=== PATIENT | female | born 1960 | race Two or more races ===

== ENCOUNTER 2020-06-29 15:56 | Emergency (ER) | payer BC ==
--- NOTE | 2020-06-29 16:46 | ER Document Report ---
ED Medical Screen (RME) - General Chief Complaint: Chest Pain Stated Complaint: CHEST PAIN,NAUSEA,VOMITING Time Seen by Provider: 06/29/20 16:43 Primary Care Provider: HANANE WARE PA-C [Primary Care Provider] - Follow up as needed Mode of Arrival: Wheelchair Information source: Patient, Relative Notes: Patient is a 59-year-old female comes emergency room accompanied by family with complaint of right upper quadrant pain radiating to the back. She also states anterior chest pain and she is also short of breath. Patient states that she has a history of 4 cardiac stents in the past. This pain started in the middle of the night last night and has been colicky and spasmatic jules. Patient states the spasms have gone more intense and more frequent in the last few hours. She denies any diarrhea but has had vomiting x1 with a green bile type presentation. She denies any history of diabetes. Patient does not smoke drink or do drugs. Stated she does state she has been short of breath with this as well. Patient examination: Patient is a well-nourished well-developed 59-year-old female though in no apparent distress is very uncomfortable appearing. Cardiac: Cardiac shows a regular rate and rhythm without any murmurs. Lungs: Bilateral breath sounds decreased throughout no rhonchi rales or wheeze are noted however patient was noted to be 93% on room air on her pulse ox. Abdomen: Examination of patient's abdomen shows severe tenderness right upper quad area positive Homans most likely. Chest: Palpation patient anterior chest does not show any reproducible tenderness. Patient was placed on oxygen out in triage secondary to her saturation 93%. Denies any known contact with COVID-19. I have greeted and performed a rapid initial assessment of this patient. A comprehensive ED assessment and evaluation of the patient, analysis of test results and completion of the medical decision making process will be conducted by additional ED providers. Dictation of this chart was performed using voice recognition software; therefore, there may be some unintended grammatical errors. TRAVEL OUTSIDE OF THE [place] IN LAST 30 DAYS: No - Related Data Allergies/Adverse Reactions: No Known Allergies Allergy (Verified 10/12/15 15:10) Physical Exam - Vital signs Vitals: Temp Pulse Resp BP Pulse Ox 97.8 F 103 H 19 153/96 H 93 06/29/20 16:13 06/29/20 16:13 06/29/20 16:13 06/29/20 16:13 06/29/20 16:13 Course - Vital Signs Vital signs: Temp Pulse Resp BP Pulse Ox 97.8 F 103 H 19 153/96 H 93 06/29/20 16:13 06/29/20 16:13 06/29/20 16:13 06/29/20 16:13 06/29/20 16:13 Doctor's Discharge - Discharge Referrals: HANANE WARE PA-C [Primary Care Provider] - Follow up as needed
--- NOTE | 2020-06-29 17:32 | EKG REPORT ---
SEVERITY:- BORDERLINE ECG - SINUS RHYTHM PROBABLE LEFT ATRIAL ABNORMALITY LEFT AXIS DEVIATION : Confirmed by: Shawn Dumont MD 29-Jun-2020 17:31:38
[2020-06-29 17:42] LABS: ABSOLUTE LYMPHOCYTES (AUTO) 1.2 10^3/uL (0.5-4.7); ABSOLUTE MONOCYTES (AUTO) 0.8 10^3/uL (0.1-1.4); ABSOLUTE NEUT (AUTO) 7.6 10^3/uL (1.7-8.2); BASOPHILS % (AUTO) 0.5 % (0-2); EOSINOPHILS % (AUTO) 9.2 % (0-6); HEMATOCRIT 39.5 % (36.0-47.0); HEMOGLOBIN 13.4 g/dL (12.0-15.5); LYMPHOCYTES % (AUTO) 11.4 % (13-45); MEAN CORPUSCULAR HEMOGLOBIN 28.7 pg (27.0-33.4); MEAN CORPUSCULAR HGB CONC 33.8 g/dL (32.0-36.0); MEAN CORPUSCULAR VOLUME 85 fl (80-97); MONOCYTES % (AUTO) 7.4 % (3-13); PLATELET COUNT 152 10^3/uL (150-450); RED BLOOD COUNT 4.66 10^6/uL (3.72-5.28); RED CELL DISTRIBUTION WIDTH 12.9 % (11.5-14.0); SEGMENTED NEUTROPHILS % (AUTO) 71.5 % (42-78); TOTAL CELLS COUNTED % (AUTO) 100 %; WHITE BLOOD COUNT 10.6 10^3/uL (4.0-10.5)
[2020-06-29 17:57] LABS: ALBUMIN 4.6 g/dL (3.5-5.0); ALKALINE PHOSPHATASE 63 U/L (38-126); ANION GAP 14 (5-19); ASPARTATE AMINO TRANSFERASE 24 U/L (14-36); BLOOD UREA NITROGEN 24 mg/dL (7-20); CALCIUM 10.3 mg/dL (8.4-10.2); CARBON DIOXIDE 31 mmol/L (22-30); CHLORIDE 94 mmol/L (98-107); GLUCOSE 212 mg/dL (75-110); POTASSIUM 3.9 mmol/L (3.6-5.0)
--- NOTE | 2020-06-29 18:07 | RADIOLOGY REPORT (SQ) ---
EXAM DESCRIPTION: U/S ABDOMEN LIMITED W/O DOP IMAGES COMPLETED DATE/TIME: 06/29/2020 5:48 pm REASON FOR STUDY: Right upper quad pain COMPARISON: None. TECHNIQUE: Dynamic and static grayscale images acquired of the abdomen and recorded on PACS. Additio nal selected color Doppler and spectral images recorded. LIMITATIONS: None. FINDINGS: PANCREAS: No masses. Visualized pancreatic duct normal caliber. LIVER: No masses. Echotexture normal. LIVER VASCULATURE: Normal directional flow of the main portal vein and hepatic veins. GALLBLADDER: Gallstone(s). No pericholecystic fluid. No wall thickening. ULTRASOUND-DETECTED BACON'S SIGN: Positive. INTRAHEPATIC DUCTS AND COMMON DUCT: CBD and intrahepatic ducts normal caliber. No filling defects. INFERIOR VENA CAVA: Normal flow. AORTA: No aneurysm. RIGHT KIDNEY: Normal size. Normal echogenicity. No solid or suspicious masses. Incidental note is m alejandra of a 2 cm cyst versus calyceal diverticulum. No hydronephrosis. No calcifications. PERITONEAL AND RIGHT PLEURAL SPACE: No ascites or effusions. OTHER: No other significant findings. IMPRESSION: Positive sonographic Bacon sign. Cholelithiasis without evidence of cholecystitis. TECHNICAL DOCUMENTATION: JOB ID: [id number] 2010 [employer]- All Rights Reserved Reading location - IP/workstation name: [email or web address]
[2020-06-29 20:12] LABS: APPEARANCE,URINE CLEAR; BILIRUBIN,URINE NEGATIVE (NEGATIVE); COLOR,URINE YELLOW; GLUCOSE, URINE NEGATIVE (NEGATIVE); KETONES,URINE NEGATIVE (NEGATIVE); LEUKOCYTE ESTERASE,URINE NEGATIVE (NEGATIVE); NITRITE,URINE NEGATIVE (NEGATIVE); PROTEIN,URINE NEGATIVE (NEGATIVE); URINE SPECIFIC GRAVITY 1.019; UROBILINOGEN,URINE NEGATIVE mg/dL (<2.0)
[2020-06-29] MEDS ORDERED: MORPHINE SULFATE 10 MG/ML INJ IV ONE (21:50)
[2020-06-29] MEDS ORDERED: NORMAL SALINE 500 ML IV ONE (21:50)
[2020-06-29] MEDS ORDERED: ONDANSETRON HCL INJ/PF 4 MG/2 ML SDV IV ONE (21:50)
--- NOTE | 2020-06-29 21:56 | ER Document Report ---
ED General - General Chief Complaint: Chest Pain Stated Complaint: CHEST PAIN,NAUSEA,VOMITING Time Seen by Provider: 06/29/20 16:43 Primary Care Provider: HANANE WARE PA-C [Primary Care Provider] - Follow up as needed Mode of Arrival: Wheelchair TRAVEL OUTSIDE OF THE [place] IN LAST 30 DAYS: No - HPI Notes: Patient is a 59-year-old female with a history of coronary artery disease who presents the emergency department for evaluation of right upper quadrant pain. Last night she had chickpeas for dinner. About a half an hour later she started having abdominal pain. Is in her right upper quadrant. Radiates around to her back, occasionally up into her chest. Is occasionally in her shoulder as well. She rates it a 10 out of 10. She has had nausea with one episode of bilious emesis. She is felt nauseated all day. No fevers or chills. She is never had pain like this in the past. Normal bowel movements. - Related Data Allergies/Adverse Reactions: No Known Allergies Allergy (Verified 10/12/15 15:10) Home Medications: List reviewed at bedside Past Medical History - General Information source: Patient, Relative - Social History Smoking Status: Never Smoker Family History: CAD, DM, Hypertension Patient has homicidal ideation: No - Past Medical History Cardiac Medical History: Reports: Hx Coronary Artery Disease, Hx Hypercholesterolemia, Hx Hypertension Neurological Medical History: Reports: Hx Cerebrovascular Accident Endocrine Medical History: Reports: Hx Diabetes Mellitus Type 2 Review of Systems - Review of Systems Constitutional: No symptoms reported EENT: No symptoms reported Cardiovascular: See HPI Respiratory: No symptoms reported Gastrointestinal: See HPI Genitourinary: No symptoms reported Musculoskeletal: See HPI Skin: No symptoms reported Neurological/Psychological: No symptoms reported -: Yes All other systems reviewed and negative Physical Exam - Vital signs Vitals: Temp Pulse Resp BP Pulse Ox 97.8 F 103 H 19 153/96 H 93 06/29/20 16:13 06/29/20 16:13 06/29/20 16:13 06/29/20 16:13 06/29/20 16:13 - Notes Notes: This is a 59-year-old female who appears her stated age, in a moderate amount of distress. Vital signs reviewed, please refer to chart. Head is normocephalic, atraumatic. Pupils equal round, reactive to light. Neck is supple without meningismus. Heart is regular rate and rhythm. Lungs are clear to auscultation bilaterally. Abdomen is soft, moderately tender in the epigastrium and right upper quadrant without rebound or guarding, normoactive bowel sounds throughout. Extremities without cyanosis, clubbing. Posterior calves are nontender. Periph eral pulses are equal. Skin is warm and dry. Patient is awake, alert, neurological exam is nonfocal. Course - Re-evaluation Re-evalutation: 06/29/20 22:24 Patient presents emergency department for evaluation. She was initially seen through triage. Laboratory investigations were obtained. Her labs are largely unremarkable. Patient's ultrasound reveals cholelithiasis without clear evidence of cholecystitis and a positive sonographic Bacon sign. I did briefly discuss this case with surgeon, Dr. Fitzgerald. He states that in the absence of any emergent need to remove this gallbladder at this time, she should be off of her Plavix for at least 5 days for surgery. He recommends referral on to the surgery clinic and having patient hold her Plavix. At this point I am giving her morphine and Zofran for symptoms, IV fluids. She is currently stable, we will reassess. 06/30/20 00:07 Patient feeling significantly improved after pain medication, nausea medication. No further vomiting. Her vital signs improved, including her hypertension. Again she shows cholelithiasis signs without clear signs of infection or choledocholithiasis. Patient was counseled on dietary changes. She was counseled on follow-up with surgery soon as possible to discuss cholecystectomy prior to it becoming an urgent or emergent procedure. She voiced understanding. I will send her home with pain medication, nausea medication, surgery referral. She is to return to the ED with worsening. - Vital Signs Vital signs: Temp Pulse Resp BP Pulse Ox 99.1 F 77 21 H 142/107 H 97 06/29/20 20:41 06/29/20 20:41 06/29/20 20:57 06/29/20 20:57 06/29/20 20:57 - Laboratory Result Diagrams: 06/29/20 17:10 06/29/20 17:10 Laboratory results interpreted by me: 06/29/20 06/29/20 17:10 17:10 WBC 10.6 H Lymph % (Auto) 11.4 L Eos % (Auto) 9.2 H Absolute Eos (auto) 1.0 H Chloride 94 L Carbon Dioxide 31 H BUN 24 H Glucose 212 H Calcium 10.3 H Total Bilirubin 2.0 H - Diagnostic Test Radiology reviewed: Reports reviewed Radiology results interpreted by me: 06/30/20 00:07 Abdomen Ultrasound 06/29/20 17:08 IMPRESSION: Positive sonographic Bacon sign. Cholelithiasis without evidence of cholecystitis. - EKG Interpretation by Me Additional EKG results interpreted by me: 06/29/20 22:25 Sinus mechanism with rate of 96 bpm. Left axis deviation. No acute ST changes concerning for ischemia or infarction. Discharge - Discharge Clinical Impression: Biliary colic, Cholelithiasis Condition: Stable Disposition: HOME, SELF-CARE Instructions: Gallbladder Disease ([facility]) Additional Instructions: You were seen for pain in your abdomen that is likely related to gallstones. Your work-up today does not show any signs that you need to have your gallbladder removed tonight. However, you will likely need surgery as an outpatient in the coming weeks. Please contact the surgery clinic in the next 24-48 hours to discuss the need for further evaluation and consideration of surgery. Return to the ED immediately if you develop worsening pain, persistent vomiting, become unable to tolerate fluids, have a fever of >100.4, or any other symptoms that are concerning to you. Referrals: HANANE WARE PA-C [Primary Care Provider] - Follow up as needed
[2020-06-30] MEDS ORDERED: ONDANSETRON ODT 4 MG TAB (6 TAB/ER DISP) PO PRN (00:08)
[2020-06-30] MEDS ORDERED: HYDROCODONE/ACETAMINOPHEN 5-325 MG (6 TAB/ER DISP) PO PRN (00:09)
[2020-06-30 00:26] VITALS: BP 123/73
== END 2020-06-30 00:46 | disposition home or self-care (01) ==
LOC: ER 15:56
DX: K80.70 Calculus of gallbladder and bile duct without cholecystitis without obstruction (principal); R10.11 Right upper quadrant pain; R10.816 Epigastric abdominal tenderness; R10.811 Right upper quadrant abdominal tenderness; M54.9 Dorsalgia, unspecified; R07.9 Chest pain, unspecified; M25.519 Pain in unspecified shoulder; R11.14 Bilious vomiting; I25.10 Atherosclerotic heart disease of native coronary artery without angina pectoris; I10 Essential (primary) hypertension; E11.9 Type 2 diabetes mellitus without complications
CPT/HCPCS: 93005; 99285; 96361; 96374; 96375; 36415; 87086; 83690; 85025; 80053; 81001; 84484; 76705; 93010; J2270; J2405; J7040

== ENCOUNTER 2020-08-27 07:55 | Day surgery (SDC) | payer BC ==
[2020-08-24 12:51] LABS: ABSOLUTE EOSINOPHILS # (AUTO) 0.2 10^3/uL (0.0-0.6); ABSOLUTE LYMPHOCYTES (AUTO) 1.8 10^3/uL (0.5-4.7); ABSOLUTE MONOCYTES (AUTO) 0.4 10^3/uL (0.1-1.4); ABSOLUTE NEUT (AUTO) 3.2 10^3/uL (1.7-8.2); BASOPHILS % (AUTO) 0.6 % (0-2); HEMATOCRIT 37.9 % (36.0-47.0); HEMOGLOBIN 12.9 g/dL (12.0-15.5); LYMPHOCYTES % (AUTO) 31.2 % (13-45); MEAN CORPUSCULAR HEMOGLOBIN 28.6 pg (27.0-33.4); MEAN CORPUSCULAR HGB CONC 34.2 g/dL (32.0-36.0); MEAN CORPUSCULAR VOLUME 84 fl (80-97); MONOCYTES % (AUTO) 7.7 % (3-13); PLATELET COUNT 130 10^3/uL (150-450); RED BLOOD COUNT 4.53 10^6/uL (3.72-5.28); SEGMENTED NEUTROPHILS % (AUTO) 56.5 % (42-78); TOTAL CELLS COUNTED % (AUTO) 100 %; WHITE BLOOD COUNT 5.6 10^3/uL (4.0-10.5)
[2020-08-24 13:13] LABS: POTASSIUM 3.7 mmol/L (3.6-5.0)
[~2020-08-27 07:55] MED LIST: CEFAZOLIN 2 GM/D5W RTU 2 GM/50 ML RTUPB IV ONE; CEFAZOLIN 2 GM/D5W RTU 2 GM/50 ML RTUPB IV PRN; FENTANYL CITRATE INJ/PF 100 MCG/2 ML AMPUL ONE; LACTATED RINGERS 1000 ML IV PRN; METRONIDAZOLE 500 MG/NS RTU 500 MG/100 ML RTUPB IV ONE; METRONIDAZOLE 500 MG/NS RTU 500 MG/100 ML RTUPB IV PRN; MIDAZOLAM 2 MG/2 ML INJ ONE; PROPOFOL INJ 200 MG/20 ML VIAL IV ONE
--- OUTSIDE RECORDS SUMMARY | 2020-08-27 07:58 | XMS REPORT ---
:1960 [facility] Address [address] [address] Care Team Providers Name Role Phone Unavailable Unavailable Unavailable Allergies, Adverse Reactions, Alerts This patient has no known allergies or adverse reactions. Medications This patient has no known medications. Problems This patient has no known problems. Procedures This patient has no known procedures. Results This patient has no known results. Social History This patient has no known social history. Vital Signs This patient has no known vital signs.
[2020-08-27] MEDS ORDERED: BUPIVACAINE INJ/PF LIPOSOME/PF 266 MG/20 ML SDV ONE (09:17)
[2020-08-27] MEDS ORDERED: MEPERIDINE HCL/PF INJ 25 MG/1 ML DISP.SYRIN IV PRN (09:36)
[2020-08-27] MEDS ORDERED: ONDANSETRON HCL INJ/PF 4 MG/2 ML SDV IV PRN (09:36)
[2020-08-27] MEDS ORDERED: DIPHENHYDRAMINE HCL 50 MG/ML VIAL IV PRN (09:36)
[2020-08-27] MEDS ORDERED: FENTANYL CITRATE INJ/PF 100 MCG/2 ML AMPUL IV PRN ×3 (09:36)
[2020-08-27] MEDS ORDERED: MORPHINE SULFATE 10 MG/ML INJ IV PRN (09:36)
--- NOTE | 2020-08-27 10:21 | Operative Report ---
Nonrecallable Operative Report DATE OF SURGERY: 08/27/20 PREOPERATIVE DIAGNOSIS: Symptomatic cholelithiasis POSTOPERATIVE DIAGNOSIS: Same OPERATION: Laparoscopic cholecystectomy SURGEON: AMINAH ZUNIGA FILENET P8 DEVELOPER: ADWOA SMITH ANESTHESIA: GA TISSUE REMOVED OR ALTERED: Gallbladder COMPLICATIONS: None INTRAOPERATIVE FINDINGS: see note PROCEDURE: After obtaining informed consent, the patient was taken to the operating room. General Anesthesia was induced; the arms were extended, and the abdomen was exposed, and prepped and draped in a sterile fashion. Instrumentation was set up for laparoscopic cholecystectomy. Surgical plan and surgical timeout were conducted. A vertical incision was made above the umbilicus, and a verres needle was inserted uneventfully into the peritoneal cavity. Pneumoperitoneum was established. The verres needle was removed and a 10 mm trocar was inserted and a 10 mm RAYMUNDO Fernandes was present for the entire procedure for help with wound retraction wound closure e laparoscope was inserted. Visualization of the peritoneal cavity confirmed safe uneventful entry. Under direct visualization 3 additional 5 mm ports were established, one in the subxiphoid position and second in the subcostal position. Visualization of the hepatobiliary anatomy revealed no anatomic variations. A grasper was placed on the fundus of the gallbladder and the gallbladder is elevated over the right surface of the liver; a second grasper was used to grasp the infundibulum of the gallbladder. The neck of the gallbladder and junction with the cystic duct was dissected out. The Cystic artery was in its usual location medial and cephalad to the cystic d uct. The cystic artery was surrounded with a right angle clamp, clipped twice proximally and divided with laparoscopic scissors. We now opened the triangle of Calot by dividing the peritoneal reflection on both the medial and lateral sides of the cystic duct infundibular junction. The critical view was obtained. We now milked the cystic duct of any possible stones, clipped the cystic duct approximately 2 times once distally and divided with scissors. The gallbladder was now removed from the undersurface of the liver using hook cautery dissection. Graspers were repositioned and the gallbladder was removed uneventfully from the abdominal cavity through the super umbilical port site incision. The specimen was examined, then passed off to pathology for permanent analysis. We returned to the peritoneal cavity check for bleeding, and evidence of bile leak, and there was none. We Confirmed satisfactory placement of clips on cystic duct and cystic artery were secured . At this point we felt the operation was complete. The subcutaneous tissue was then anesthetized with quarter percent Marcaine Sponge and needle counts are correct. All ports removed under direct visualization pneumoperitoneum evacuated, and 5 mm port wounds closed with 3-0 Vicryl suture, benzoin and Steri-Strips. The patient was extubated, and taken to the recovery room in stable condition. Adwoa Emerson was present for the entire procedure for help with wound retraction and wound closure
--- NOTE | 2020-08-27 10:26 | Discharge Summary ---
Discharge Summary (SDC) - Discharge Final Diagnosis: Dramatic cholelithiasis Date of Surgery: 08/27/20 Discharge Date: 08/27/20 Condition: Good Prescriptions: Hydrocodone/Acetaminophen [Downing 7.5-325 mg Tablet] 1 tab PO Q6HP PRN #10 tablet PRN Reason: Referrals: HANANE WARE PA-C [Primary Care Provider] - Discharge Diet: As Tolerated Discharge Activity: Activity As Tolerated, No Lifting Over 10 Pounds Report the Following to Your Physician Immediately: Yellow Skin - Patient needs a follow-up with me in 7 to 10 days, Unusual Bleeding
[2020-08-27] MEDS ORDERED: SUGAMMADEX SODIUM 200 MG/2 ML SDV IV ONE (10:31)
[2020-08-27] MEDS ORDERED: HYDROCODONE/ACETAMINOPHEN 7.5-325 MG TABLET ONE (11:46)
[2020-08-27] MEDS ORDERED: NEOSTIGMINE METHYLSULFATE 10 MG/10 ML VIAL ONE (12:38)
[2020-08-27] MEDS ORDERED: ONDANSETRON HCL INJ/PF 4 MG/2 ML SDV ONE (12:38)
[2020-08-27] MEDS ORDERED: GLYCOPYRROLATE 1 MG/5 ML VIAL ONE (12:38)
[2020-08-27] MEDS ORDERED: KETOROLAC TROMETHAMINE 60 MG/2 ML SDV ONE (12:38)
[2020-08-27] MEDS ORDERED: ROCURONIUM BROMIDE INJ 50 MG/5 ML VIAL IV ONE (12:38)
[2020-08-27] MEDS ORDERED: DEXAMETHASONE SOD PHOSPHATE INJ 4 MG/1 ML VIAL ONE (12:38)
[2020-08-27 12:54] VITALS: BP 156/88
== END 2020-08-27 12:45 | disposition home or self-care (01) ==
LOC: OROUT 07:55
PROVIDERS: ATTEND Surgery
DX: K80.10 Calculus of gallbladder with chronic cholecystitis without obstruction (principal); Z01.812 Encounter for preprocedural laboratory examination; Z20.822 Contact with and (suspected) exposure to COVID-19; Z86.73 Personal history of transient ischemic attack (TIA), and cerebral infarction without residual deficits; I25.10 Atherosclerotic heart disease of native coronary artery without angina pectoris; E11.9 Type 2 diabetes mellitus without complications; I10 Essential (primary) hypertension; Z79.84 Long term (current) use of oral hypoglycemic drugs; Z79.02 Long term (current) use of antithrombotics/antiplatelets; Z79.82 Long term (current) use of aspirin; Z95.5 Presence of coronary angioplasty implant and graft; E78.5 Hyperlipidemia, unspecified
CPT/HCPCS: 36415; 82962; 80051; 85025; 88304 ×2; 47562; U0003; J2250; J3490 ×4; J1100; J1885; J3010; J2710; J2405; J2704; J0690; C9290; C9803; 87635